=== PATIENT | female | born 1965 | race African-American/Black ===

== ENCOUNTER 2016-06-16 20:40 | Emergency (ER) | payer OTHER ==
[~2016-06-16] VITALS: Ht 167.6 cm; Wt 95.3 kg
[~2016-06-16 20:40] MED LIST: ABILIFY15 MG; ALBUTEROL SULF8.5 GM INH; CIPROFLOXACIN500 M2 ORAL; FLUOXETINE HCL20 MG; PREDNISONE20 MG ORAL
[2016-06-16] MEDS ORDERED: Acetaminophen 500mg (ES) tab ORAL ONE (21:00)
[2016-06-16] MEDS ORDERED: TYLENOL325 MG ORAL (21:44)
[2016-06-16 22:06] VITALS: BP 125/75
--- NOTE | 2016-06-16 22:44 | Emergency Room Report ---
History of Present Illness General Chief Complaint: Lower Extremity Injury Source: Patient Present Illness HPI Patient is a 51-year-old female who presented after increased left lower extremity pain. Patient reported having pain to her great toe. The patient stated she had some frozen chicken drop onto her foot. Patient reports having pain to the medial side of the foot near the arch. She denied pain to the lateral aspect of her foot. She reports having allergies to ibuprofen Allergies: Coded Allergies: No Known Allergies (Unverified , 09/19/13) Patient History Past Medical History: see triage record Now: No Reviewed Nursing Documentation: PMH: Agreed, PSxH: Agreed Nursing Documentation-PM Past Medical History: No History, Except For Hx Asthma: Yes Review of Systems All Other Systems: negative except mentioned in HPI Physical Exam Vital Signs Date Time Temp Pulse Resp B/P Pulse Ox O2 Delivery O2 Flow Rate FiO2 06/16/16 20:43 97.9 98 18 119/78 98 Room Air General Appearance: well appearing, no apparent distress, alert, GCS 15 Head: normocephalic, atraumatic ENT: hearing grossly normal, normal voice Neck: full range of motion, supple Respiratory: no respiratory distress, speaking full sentences Gastrointestinal: normal inspection, non tender, soft Musculoskeletal: normal inspection, back normal, gait/station normal, no calf tenderness Neurologic: normal inspection, alert, oriented x3, flower stripper III-XII nml as tested, normal gait Psychiatric: mood/affect normal Skin: no rash Medical Decision Making Diagnostic Impression: Primary Impression: Contusion, foot ER Course Patient presented for extremity pain. Differential diagnosis included but was not limited to fracture, contusion, vascular insufficiency, aortic aneurysm, cellulitis. Left foot x-ray 3 views interpreted by me showed healed the fracture to the base of the fifth metatarsal. There was a degenerative changes noted without evident fracture to the area of concern. The patient appears to be vascularly intact. This appears to be a soft tissue injury. Patient is advised to keep her foot elevated and to loosen wrap if the pain became worseThe patient given Tylenol for pain.The patient is advised to follow up with primary care doctor in 1-2 days. Patient is advised to return if any worsening condition or if any changes in status that are concerning. Last Vital Signs Date Time Temp Pulse Resp B/P Pulse Ox O2 Delivery O2 Flow Rate FiO2 06/16/16 22:06 97.8 90 15 125/75 100 Room Air Status: improved Disposition: HOME, SELF-CARE Condition: Stable Scripts Acetaminophen (Tylenol) 325 Mg Tablet 650 MG ORAL Q6H Y for Prn Pain/Headache/Temp > 101, #30 TAB 0 Refills Prov: Livan Nesbitt 06/16/16 Patient Instructions: Foot Contusion Livan Nesbitt Jun 16, 2016 22:44
== END 2016-06-16 22:06 | disposition home or self-care (01) ==
LOC: EMR 20:52
DX: S90.32XA Contusion of left foot, initial encounter (principal); X58.XXXA Exposure to other specified factors, initial encounter; Y93.9 Activity, unspecified; Y92.9 Unspecified place or not applicable; Y99.9 Unspecified external cause status; J45.909 Unspecified asthma, uncomplicated
CPT/HCPCS: 99283

== ENCOUNTER 2017-12-30 10:51 | Emergency (ER) | payer OTHER ==
[~2017-12-30] VITALS: Ht 168.9 cm; Wt 79.8 kg
[~2017-12-30 10:51] MED LIST changes: +NKM; +TYLENOL325 MG ORAL
[2017-12-30 11:02] VITALS: BP 125/79
--- NOTE | 2017-12-30 11:14 | Emergency Room Report ---
History of Present Illness General Chief Complaint: General Complaint Source: Medical Record Present Illness HPI Patient is a 52-year-old female who presented after increased cough and congestion. Patient gradual onset of symptoms. Patient reports being a smoker. She reports having increased cough. She states that she been having green phlegm. The patient had subjective fever. She denies any vomiting. She reports having additionally had a lesion to her back for approximately one month. She reports having chronic pain to her left knee which is somewhat worse. Allergies: Coded Allergies: IBUPROFEN (Verified Allergy, Unknown, 12/30/17) Patient History Past Medical History: see triage record Last Menstrual Period: 27 yrs ago Reviewed Nursing Documentation: PMH: Agreed; PSxH: Agreed Nursing Documentation-PMH Past Medical History: No History, Except For Hx Asthma: Yes Review of Systems All Other Systems: negative except mentioned in HPI Physical Exam Vital Signs Date Time Temp Pulse Resp B/P (MAP) Pulse Ox O2 Delivery O2 Flow Rate FiO2 12/30/17 10:56 98.2 92 18 125/79 96 Room Air 98.2 General Appearance: well appearing, no apparent distress, alert, GCS 15 Head: normocephalic, atraumatic ENT: hearing grossly normal, normal voice Neck: full range of motion, supple Respiratory: no respiratory distress, speaking full sentences, wheezing Cardiovascular #1: normal inspection Gastrointestinal: normal inspection, non tender, soft Musculoskeletal: normal inspection, no calf tenderness Neurologic: normal inspection, alert, oriented x3, responsive, normal gait Psychiatric: mood/affect normal Skin: no rash Medical Decision Making Diagnostic Impression: Primary Impression: Asthma exacerbation Additional Impressions: Mass on back Arthralgia of knee, left ER Course Patient presented for cough. Differential diagnosis included but was not limited to bronchitis, pneumonia, pulmonary embolism, pericarditis, asthma, foreign body.Because of complexity of patient's case imaging studies were ordered. Patient given breathing treatment. the patient noted to have improvement in her symptoms. She is advised follow-up with her primary care physician for reexamination. The patient does not appear to require narcotic pain medications at this time.Chest x-ray one view read by radiology showed normal cardiac size without evident infiltrate. The patient was given prescription for cough medications. She was advised follow-up as an outpatient for reevaluation mass with her primary care physician the patient is given prescription for Abilify for medication refill Last Vital Signs Date Time Temp Pulse Resp B/P (MAP) Pulse Ox O2 Delivery O2 Flow Rate FiO2 12/30/17 11:02 98.2 92 18 125/79 96 Room Air 98.2 Status: improved Disposition: HOME, SELF-CARE Condition: Stable Scripts Aripiprazole* (ABILIFY*) 30 Mg Tablet 30 MG ORAL DAILY, #30 TAB Prov: Livan Nesbitt MD 12/30/17 Guaifenesin* (ADULT WAL-TUSSIN*) 100 Mg/5 Ml Liquid 10 ML ORAL Q4H, #120 ML Prov: Livan Nesbitt MD 12/30/17 Albuterol Sulfate* (ALBUTEROL SULFATE MDI*) 8.5 Gm Hfa.aer.ad 2 PUFF INH Q4H PRN for cough/wheezing, #1 EA 0 Refills Prov: Livan Nesbitt MD 12/30/17 Referrals: NOT CHOSEN IPA/,REFERRING (PCP) Livan Nesbitt MD Dec 30, 2017 11:14
[2017-12-30] MEDS ORDERED: Albuterol/Ipratropium 3ml neb HHN ONE (11:15)
[2017-12-30] MEDS ORDERED: Acetaminophen 500mg (ES) tab ORAL ONE (11:15)
[2017-12-30] MEDS ORDERED: ADULT WAL-100 MG/5 M ORAL (11:27)
[2017-12-30] MEDS ORDERED: ALBUTEROL SULF8.5 GM INH (11:27)
--- NOTE | 2017-12-30 11:51 | Diagnostic Imaging Report ---
INDICATION: Shortness of breath COMPARISON: Chest x-ray dated 07/26/14 FINDINGS: Single frontal view demonstrates a normal cardiomediastinal silhouette. The lungs are clear. No pleural effusions. The visualized osseous structures are within normal limits. IMPRESSION: No acute cardiopulmonary disease.
[2017-12-30] MEDS ORDERED: ABILIFY30 MG ORAL (11:57)
[2017-12-30 12:00] VITALS: BP 125/79
== END 2017-12-30 12:00 | disposition home or self-care (01) ==
LOC: EMR 11:07
DX: J45.901 Unspecified asthma with (acute) exacerbation (principal); R22.2 Localized swelling, mass and lump, trunk; M25.562 Pain in left knee; Z88.6 Allergy status to analgesic agent
CPT/HCPCS: 71045; 94640; 94664; 99284; J7620

== ENCOUNTER 2018-02-03 03:53 | Emergency (ER) | payer OTHER ==
[~2018-02-03] VITALS: Ht 167.6 cm; Wt 68.0 kg
[~2018-02-03 03:53] MED LIST changes: +ABILIFY30 MG ORAL; +ADULT WAL-100 MG/5 M ORAL
[2018-02-03] MEDS ORDERED: Mylanta II UD 30ml ORAL ONE (04:00)
--- NOTE | 2018-02-03 04:02 | Emergency Room Report ---
History of Present Illness General Chief Complaint: Abdominal Pain Source: Patient Present Illness HPI Is a 52-year-old female presents with chief complaint abdominal pain and burning sensation. Onset for the last 6 months. She claimed that her brother shined a laser her abdomen and since his been hurting. No fever chills. No nausea no vomiting which she [address] She refused to say where she was coming from. She told me she was on her way home. Pain is diffuse in nature. No nausea no vomiting. No fever or chills. Pain is 9 out of 10. nothing made it better. Nothing made it worse. Denies any other complaint. Allergies: Coded Allergies: IBUPROFEN (Verified Allergy, Unknown, 12/30/17) Patient History Past Medical History: see triage record, old chart reviewed Past Surgical History: other Pertinent Family History: none Social History: Reports: alcohol use; Denies: smoking Last Menstrual Period: unk Now: No Immunizations: other Reviewed Nursing Documentation: PMH: Agreed; PSxH: Agreed Nursing Documentation-PMH Past Medical History: No History, Except For Hx Asthma: Yes Hx COPD: Yes Review of Systems Eye: Denies: eye pain, blurred vision ENT: Denies: ear pain, nose congestion, throat swelling Respiratory: Denies: cough, shortness of breath Cardiovascular: Denies: palpitations Gastrointestinal: Reports: abdominal pain; Denies: diarrhea, nausea, vomiting Musculoskeletal: Denies: back pain, joint pain Skin: Denies: rash Neurological: Denies: headache, numbness Endocrine: Denies: increased thirst, increased urine Hematologic/Lymphatic: Denies: easy bruising All Other Systems: negative except mentioned in HPI Physical Exam Vital Signs Date Time Temp Pulse Resp B/P (MAP) Pulse Ox O2 Delivery O2 Flow Rate FiO2 02/03/18 03:50 98.1 97 18 112/72 97 Room Air vitals normal Sp02 EP Interpretation: reviewed, normal General Appearance: well appearing, no apparent distress, alert Head: normocephalic, atraumatic Eyes: bilateral eye PERRL, bilateral eye EOMI ENT: hearing grossly normal, normal pharynx Neck: full range of motion, supple, no meningismus Respiratory: chest non-tender, lungs clear, normal breath sounds Cardiovascular #1: regular rate, rhythm, no murmur Gastrointestinal: normal bowel sounds, no mass, no organomegaly, no bruit, non- distended, tenderness - Diffuse, soft Musculoskeletal: back normal, normal range of motion, other - Patient has a walker Psychiatric: mood/affect normal Skin: warm/dry Medical Decision Making Diagnostic Impression: Primary Impression: Abdominal pain Qualified Codes: R10.84 - Generalized abdominal pain Additional Impressions: Polysubstance abuse Alcohol intoxication Qualified Codes: F10.920 - Alcohol use, unspecified with intoxication, uncomplicated Hypoglycemia ER Course Patient presents with abdominal pain. Labs showed a leukocytosis. She does have a hypoglycemia probably secondary to drug and alcohol abuse without eating. No evidence of any obstruction or acute abdomen. CT scan still pending however. We'll discharge negative. Lab Results Impression labs with leukocytosis CT/MRI/US Diagnostic Results CT/MRI/US Diagnostic Results : Imaging Test Ordered: CT abdomen and pelvis Impression read by radiologist. Negative. Last Vital Signs Date Time Temp Pulse Resp B/P (MAP) Pulse Ox O2 Delivery O2 Flow Rate FiO2 02/03/18 03:50 98.1 97 18 112/72 97 Room Air Status: improved Disposition: HOME, SELF-CARE Condition: Stable Patient Instructions: Abdominal Pain, Adult Additional Instructions: Stop using drugs and alcohol. Go to rehabilitation. Follow-up with your doctor in 3-5 days. Return of worse. Jermaine Faust MD Feb 03, 2018 04:02
[2018-02-03 04:37] LABS: HEMATOCRIT 45.5 % (37.0-47.0); HEMOGLOBIN 14.9 G/DL (12.0-16.0); MEAN CORPUSCULAR VOLUME 88 FL (80-99); PLATELET COUNT 445 K/UL (150-450); RED BLOOD COUNT 5.17 M/UL (4.20-5.40); RED CELL DISTRIBUTION WIDTH 11.7 % (11.6-14.8)
[2018-02-03 04:46] VITALS: BP 112/72
[2018-02-03 04:46] LABS: ANION GAP 16 mmol/L (5-15); BLOOD UREA NITROGEN 16 mg/dL (7-18); CALCIUM 9.1 MG/DL (8.5-10.1); CARBON DIOXIDE 25 MMOL/L (21-32); CHLORIDE 104 MMOL/L (98-107); CREATININE 0.6 MG/DL (0.55-1.30); POTASSIUM 2.9 MMOL/L (3.5-5.1); SODIUM 145 MMOL/L (136-145)
[2018-02-03 04:46] LABS: APPEARANCE,URINE CLEAR; BILIRUBIN, URINE NEGATIVE (NEGATIVE); COLOR,URINE PALE YELLOW; GLUCOSE, URINE (UA) NEGATIVE (NEGATIVE); KETONES,URINE NEGATIVE (NEGATIVE); LEUKOCYTE ESTERASE ,URINE 2+ (NEGATIVE); NITRITE,URINE NEGATIVE (NEGATIVE); PH,URINE 5 (4.5-8.0); PROTEIN,URINE NEGATIVE (NEGATIVE); UROBILINOGEN,URINE NORMAL MG/DL (0.0-1.0)
[2018-02-03 04:50] LABS: ALANINE AMINOTRANSFERASE 16 U/L (12-78); ALBUMIN 3.9 G/DL (3.4-5.0); ALBUMIN/GLOBULIN RATIO 0.7 (1.0-2.7); ALKALINE PHOSPHATASE 83 U/L (46-116); ASPARTATE AMINO TRANSFERASE 24 U/L (15-37); BILIRUBIN,TOTAL 0.6 MG/DL (0.2-1.0)
[2018-02-03] MEDS ORDERED: Isovue-300 100ml vial INJ PRN (05:15)
[2018-02-03 06:05] VITALS: BP 111/74
--- NOTE | 2018-02-03 06:16 | Diagnostic Imaging Report ---
EXAM: CT Abdomen and Pelvis With Intravenous Contrast CLINICAL HISTORY: Abd pain x3 days TECHNIQUE: Axial computed tomography images of the abdomen and pelvis with intravenous contrast. CTDI is 13.46 mGy and DLP is 617 mGy-cm. One or more of the following dose reduction techniques were used: automated exposure control, adjustment of the mA and/or kV according to patient size, use of iterative reconstruction technique. Coronal and sagittal reconstructions are performed COMPARISON: No relevant prior studies available. FINDINGS: Lung bases: Unremarkable. No mass. No consolidation. ABDOMEN: Liver: Suspect fatty liver. Gallbladder and bile ducts: Unremarkable. No calcified stones. No ductal dilation. Pancreas: Unremarkable. No mass. No ductal dilation. Spleen: Unremarkable. No splenomegaly. Adrenals: Unremarkable. No mass. Kidneys and ureters: Subcentimeter lower pole left renal cyst, too small to characterize. No hydronephrosis. Stomach and bowel: Unremarkable. No obstruction. No mucosal thickening. PELVIS: Appendix: Normal appendix. Bladder: Unremarkable. No mass. Reproductive: Uterus and ovaries are not seen. ABDOMEN and PELVIS: Intraperitoneal space: Unremarkable. No free air. No significant fluid collection. Bones/joints: 6 mm anterolisthesis of L3 on L4. No acute fracture. No dislocation. Soft tissues: Unremarkable. Vasculature: Unremarkable. No abdominal aortic aneurysm. Lymph nodes: Unremarkable. No enlarged lymph nodes. IMPRESSION: No acute findings.
[2018-02-03 06:32] VITALS: BP 115/75
== END 2018-02-03 06:30 | disposition home or self-care (01) ==
LOC: EDBD 03:53 → EMR 04:02
DX: R10.9 Unspecified abdominal pain (principal); F10.129 Alcohol abuse with intoxication, unspecified; D72.829 Elevated white blood cell count, unspecified; F19.10 Other psychoactive substance abuse, uncomplicated; E16.2 Hypoglycemia, unspecified; Z88.6 Allergy status to analgesic agent; J44.9 Chronic obstructive pulmonary disease, unspecified
CPT/HCPCS: 36415; 74177; 80053; 80307; 80329; 81003; 81025; 83690; 85007; 85025; 96361; 96374; 99284; Q9967; J8499

== ENCOUNTER 2018-06-10 13:26 | Emergency (ER) | payer OTHER ==
[~2018-06-10] VITALS: Ht 167.6 cm; Wt 76.2 kg
[2018-06-10] MEDS ORDERED: NORITATE60 GM PO (13:42)
[2018-06-10] MEDS ORDERED: ZOLOFT100 MG ORAL (13:42)
--- NOTE | 2018-06-10 13:53 | NUR ---
ED Nurse Note: Pt came into the ER w/ complaints of lower back pain x 2 days ago. Denies dysuria. Pt rates the pain a 6/10. Non radiating. Pt is also complaining of left ankle swelling x 2 days. Pt states that it started 2 days ago while playing with her brother and stated that she heard a "pop" sound. Swelling noted on the area. Hx of schizo, bipolar, depression. A + O x4. Ambulatory. Skin warm to touch.
[2018-06-10 13:54] VITALS: BP 108/66
--- NOTE | 2018-06-10 14:15 | NUR ---
ED Nurse Note: Urine has been collected and sent to lab.
[2018-06-10 14:22] LABS: APPEARANCE,URINE CLEAR; BILIRUBIN, URINE NEGATIVE (NEGATIVE); COLOR,URINE PALE YELLOW; GLUCOSE, URINE (UA) NEGATIVE (NEGATIVE); KETONES,URINE NEGATIVE (NEGATIVE); LEUKOCYTE ESTERASE ,URINE NEGATIVE (NEGATIVE); NITRITE,URINE NEGATIVE (NEGATIVE); PH,URINE 7 (4.5-8.0); PROTEIN,URINE NEGATIVE (NEGATIVE); UROBILINOGEN,URINE NORMAL MG/DL (0.0-1.0)
--- NOTE | 2018-06-10 14:35 | NUR ---
ED Nurse Note: Xray at the bedside.
--- NOTE | 2018-06-10 14:45 | NUR ---
ED Nurse Note: Left ankle placed in nini bandage and pt given a cane.
[2018-06-10] MEDS ORDERED: ROBAXIN-750750 MG PO (14:49)
[2018-06-10] MEDS ORDERED: TYLENOL EXTRA500 MG ORAL (14:49)
[2018-06-10 14:57] VITALS: BP 107/58
--- NOTE | 2018-06-10 14:58 | NUR ---
ER DISCHARGE NOTE: Patient is cleared to be discharged per ERMD, pt is aox4, on room air, with stable vital signs. pt was given dc and prescription instructions, pt was able to verbalize understanding, pt id band removed without complications. pt is able to ambulate with steady gait. pt took all belongings.
--- NOTE | 2018-06-10 15:42 | Emergency Room Report ---
History of Present Illness General Chief Complaint: Pain Source: Patient Present Illness HPI 53-year-old female presents ED for evaluation. Patient complaining of left ankle pain and back pain status post trip and fall last night. Patient normally uses a walker. Denies hitting her head or LOC. Pain is dull, 7 out of 10, nonradiating. Denies flank pain. Denies fevers or chills. Denies dysuria or hematuria. No other aggravating relieving factors. Denies any other associated symptoms Allergies: Coded Allergies: IBUPROFEN (Verified Allergy, Unknown, 06/10/18) Patient History Past Medical History: asthma, COPD Past Surgical History: none Pertinent Family History: none Social History: Denies: smoking, alcohol use, drug use Last Menstrual Period: menopause Now: No Immunizations: UTD Reviewed Nursing Documentation: PMH: Agreed; PSxH: Agreed Nursing Documentation-PMH Past Medical History: No History, Except For Hx Asthma: Yes Hx COPD: Yes Review of Systems All Other Systems: negative except mentioned in HPI Physical Exam Vital Signs Date Time Temp Pulse Resp B/P (MAP) Pulse Ox O2 Delivery O2 Flow Rate FiO2 06/10/18 13:38 98.1 91 16 112/64 96 Room Air Sp02 EP Interpretation: reviewed, normal General Appearance: no apparent distress, alert, GCS 15, non-toxic Head: normocephalic, atraumatic Eyes: bilateral eye normal inspection, bilateral eye PERRL ENT: hearing grossly normal, normal pharynx, no angioedema, normal voice Neck: full range of motion, supple/symm/no masses Respiratory: chest non-tender, lungs clear, normal breath sounds, speaking full sentences Cardiovascular #1: regular rate, rhythm, no edema Cardiovascular #2: 2+ carotid (R), 2+ carotid (L), 2+ radial (R), 2+ radial (L) , 2+ dorsalis pedis (R), 2+ dorsalis pedis (L) Gastrointestinal: normal bowel sounds, non tender, soft, non-distended, no guarding, no rebound Rectal: deferred Genitourinary: normal inspection, no CVA tenderness Musculoskeletal: gait/station normal, normal range of motion, swelling - L ankle, tender - paraspinal lumbar tenderness Neurologic: alert, oriented x3, responsive, motor strength/tone normal, sensory intact, speech normal Psychiatric: judgement/insight normal, memory normal, mood/affect normal, no suicidal/homicidal ideation Reflexes: 3+ bicep (R), 3+ bicep (L), 3+ tricep (R), 3+ tricep (L), 3+ knee (R) , 3+ knee (L) Skin: normal color, no rash, warm/dry, well hydrated Lymphatic: no adenopathy Procedures Splinting Splinting : Consent: Verbal Pre-Made Type: SHELTON wrap Pre-Proc Neuro Vasc Exam: normal Post-Proc Neuro Vasc Exam: normal Patient Tolerated: Well Complications: None Medical Decision Making Diagnostic Impression: Primary Impression: Low back strain Qualified Codes: S39.012A - Strain of muscle, fascia and tendon of lower back , initial encounter Additional Impression: Ankle sprain Qualified Codes: S93.402A - Sprain of unspecified ligament of left ankle, initial encounter ER Course Hospital Course 53-year-old F presents to ED complaining of L ankle and back pain s/p trip and fall Differential diagnoses include: Fracture, dislocation, sprain, contusion Clinical course Patient placed on stretcher. After initial history and physical, I ordered xrays of L ankle, UA Xrays prelim read shows no acute fracture/dislocation. placed in shelton wrap. patient alrady using walker for support UA negative Discussed findings with patient. Safe for discharge with close outpatient follow-up. We'll provide ortho referrals Diagnosis - ankle sprain, low back strain Stable and discharged to home with prescription for tylenol, robaxin. apply ice , keep elevated. weight bear as tolerated. Followup with PMD. Return to ED if symptoms recur or worsen Labs Test 06/10/18 14:10 Urine Color Pale yellow Urine Appearance Clear Urine pH 7 (4.5-8.0) Urine Specific [place] 1.010 (1.005-1.035) Urine Protein Negative (NEGATIVE) Urine Glucose (UA) Negative (NEGATIVE) Urine Ketones Negative (NEGATIVE) Urine Blood Negative (NEGATIVE) Urine Nitrite Negative (NEGATIVE) Urine Bilirubin Negative (NEGATIVE) Urine Urobilinogen Normal MG/DL (0.0-1.0) Urine Leukocyte Esterase Negative (NEGATIVE) Urine RBC 0 /HPF (0 - 2) Urine WBC 0 /HPF (0 - 2) Urine Squamous Epithelial Cells Occasional /LPF Urine Bacteria Occasional /HPF (NONE) Other X-Ray Diagnostic Results Other X-Ray Diagnostic Results #1: X-Ray ordered: L foot # of Views/Limited Vs Complete: 3 View Indication: Pain EP Interpretation: Yes Interpretation: no dislocation, no soft tissue swelling, no fractures Impression: No acute disease Electronically Signed by: Electronically signed by Gagan Hudson MD Other X-Ray Diagnostic Results #2: X-Ray ordered: L ankle # of Views/Limited Vs Complete: 3 View Indication: Pain EP Interpretation: Yes Interpretation: no dislocation, no soft tissue swelling, no fractures Impression: No acute disease Electronically Signed by: Electronically signed by Gagan Hudson MD Last Vital Signs Date Time Temp Pulse Resp B/P (MAP) Pulse Ox O2 Delivery O2 Flow Rate FiO2 06/10/18 14:57 98.2 84 17 107/58 99 Room Air Status: improved Disposition: HOME, SELF-CARE Condition: Stable Scripts Methocarbamol* (ROBAXIN-750*) 750 Mg Tablet 750 MG PO TID, #21 TAB 0 Refills Prov: Gagan Hudson MD 06/10/18 Acetaminophen* (TYLENOL EXTRA STRENGTH*) 500 Mg Tablet 500 MG ORAL Q8H PRN for Prn Headache/Temp > 101, #30 TAB 0 Refills Prov: Gagan Hudson MD 06/10/18 [facility]errals: [facility] Open 24 hour /7 days a week by Appointment Only [address] [facility] [address] Patient Instructions: Ankle Sprain, [id number] Gagan Hudson MD Jun 10, 2018 15:42
--- NOTE | 2018-06-11 19:15 | Diagnostic Imaging Report ---
Indication: Foot pain Comparison: None Findings: 3 views of the left foot were obtained. No acute fractures, malalignment, erosions or periostitis are identified. Soft tissues are unremarkable. Hallux valgus deformity noted. Impression: No acute findings Arthrosis and hallux valgus deformity
--- NOTE | 2018-06-11 19:15 | Diagnostic Imaging Report ---
Indication: Ankle injury and pain Comparison: None Findings: 2 view left ankle obtained. No fracture or malalignment identified. Vascular calcium noted. IMPRESSION: No acute injury
== END 2018-06-10 14:59 | disposition home or self-care (01) ==
LOC: EMR 14:07
DX: S93.402A Sprain of unspecified ligament of left ankle, initial encounter (principal); S39.012A Strain of muscle, fascia and tendon of lower back, initial encounter; W01.0XXA Fall on same level from slipping, tripping and stumbling without subsequent striking against object, initial encounter; Y92.89 Other specified places as the place of occurrence of the external cause; J44.9 Chronic obstructive pulmonary disease, unspecified
CPT/HCPCS: 81001; 99283